=== PATIENT | male | born 1965 | race Caucasian/White ===

== ENCOUNTER → 2018-01-23 | Outpatient (CLI) | payer BC ==
--- NOTE | 2018-01-23 16:17 | Diagnostic Imaging Report ---
PROCEDURE:US RETROPERITONEAL ( KIDNEY ). COMPARISON:None. INDICATIONS:Abdominal Pain, Hematuria TECHNIQUE: Bell-scale and color sonographic images of the bilateral kidneys and bladder where obtained in transverse and longitudinal planes. FINDINGS: RIGHT KIDNEY: 11.3 x 6.5 x 5.9 cm, cortex 1.4 cm Cysts: None Solid masses: None Stones: None Hydronephrosis: None Echogenicity: Normal LEFT KIDNEY: 11.8 x 5.9 x 6.9 cm, cortex 1.7 cm Cysts: None Solid masses: None Stones: Superior pole 0.8 x 0.5 x 0.6 cm echogenic focus with posterior acoustic shadowing and twinkle artifact. Hydronephrosis: None Echogenicity: Normal Bladder: Trace debris. Prostate: 3.4 x 2.7 x 4.1 cm (19.8 cc), within normal limits. CONCLUSION: 1. Left nephrolithiasis. If hematuria persists, consider CT urography for further evaluation. 2. Trace nonspecific debris in the bladder. Recommend correlation with urinalysis. Dictated by: Gonzales Blanton M.D. on 01/23/2018 at 16:19 Electronically approved by: Gonzales Blanton M.D. on 01/23/2018 at 16:19
== END ==
LOC: US 14:59
PROVIDERS: ATTEND Internal Medicine
DX: R10.9 Unspecified abdominal pain (principal); R31.9 Hematuria, unspecified
CPT/HCPCS: 76770

== ENCOUNTER → 2020-07-03 | Outpatient (CLI) | payer BC ==
[~2020-07-03] MED LIST: IOPAMIDOL 370 MG/ML 200 ML INFUS..BTL INJ ONE; SODIUM CHLORIDE 0.9% 50ML 50 ML ONE
[2020-07-03 08:33] LABS: BLOOD UREA NITROGEN 15 mg/dL (7-26); BUN/CREATININE RATIO 15 (6-25); CREATININE, SERUM 0.99 mg/dL (0.72-1.25); EST GLOMERULAR FILTRATION RATE > 60 ML/MIN (60-)
--- NOTE | 2020-07-03 09:51 | Diagnostic Imaging Report ---
CT of the abdomen and pelvis with contrast TECHNIQUE: CT of the abdomen and pelvis WITH intravenous contrast and WITHOUT oral contrast. Dose modulation, iterative reconstruction, and/or weight-based adjustment of the mA/kV was utilized to reduce the radiation dose to as low as reasonably achievable. IV CONTRAST: 100 mL of Isovue-370 ORAL CONTRAST: None RADIATION DOSE: Total DLP: 669 mGy*cm COMPLICATIONS: None INDICATION: ^[id number] ^[id number] ^LOWER ABD PAIN/VENTRAL HERNIA. COMPARISON: None. FINDINGS: LOWER THORAX: Moderate hiatal hernia is noted. HEPATOBILIARY: No focal hepatic lesions. There are a few scattered subcentimeter hypodense lesions, nonspecific. Gallbladder is unremarkable. No biliary ductal dilatation. SPLEEN: No splenomegaly. PANCREAS: No focal masses or ductal dilatation. ADRENALS: No adrenal nodules. KIDNEYS/URETERS: No hydronephrosis, stones, or masses. PELVIC ORGANS/BLADDER: Urinary bladder is partially distended. Prostate contains a few coarse calcifications and is of normal size. PERITONEUM/RETROPERITONEUM: No free air or fluid. Small fat-containing right inguinal hernia is noted. Tiny fat-containing umbilical and right juxta umbilical hernias are noted. LYMPH NODES: No lymphadenopathy. VESSELS: Unremarkable. GI TRACT: Moderate hiatal hernia is noted. Stomach is decompressed. Portions of the colon are decompressed. Normal appendix is noted. No surrounding inflammatory changes are noted. Negative for obstruction. A few diverticula of the sigmoid colon are noted without surrounding inflammatory changes. BONES AND SOFT TISSUES: No acute osseous abnormality. There are diffuse multilevel degenerative changes throughout the lower thoracic and lumbar spine, most prominent at L4-5 and L5-S1 with posterior disc bulges, vacuum phenomenon and facet arthropathy. There is a probable bone island within the left aspect of the L2 vertebral body. Otherwise negative for suspicious lytic or blastic lesion. IMPRESSION: 1. Negative for acute abdominopelvic process. 2. Tiny fat-containing umbilical hernia and juxta umbilical right superolateral ventral abdominal hernia are noted. Small right fat-containing inguinal hernia is noted. 3. Moderate hiatal hernia. 4. Uncomplicated colonic diverticulosis. Signed by: Chance Coello MD on 07/03/2020 9:47 AM
== END ==
LOC: CT 07:31
PROVIDERS: ATTEND Internal Medicine
DX: R10.30 Lower abdominal pain, unspecified (principal)
CPT/HCPCS: 36415; 74177; 82565; 84520; Q9967